=== PATIENT | male | born 1960 | race Caucasian/White ===

== ENCOUNTER 2016-07-25 20:35 | Emergency (ER) | payer BC, OTHER ==
[~2016-07-25] VITALS: Ht 165.1 cm; Wt 97.5 kg
[2016-07-25 20:35] VITALS: Ht 165.1 cm; Wt 97.5 kg
[~2016-07-25 20:35] MED LIST: ASPI325T PO; ATOR20TA59 PO; CEPH500C2 PO; CYCL30DR BOTH EYES; INSU100V9 SQ; INSU300I SQ; LIRA0.6P2 SQ; SULF1TAB42 PO
--- OUTSIDE RECORDS SUMMARY | 2016-07-25 20:39 | XMS REPORT | Referral Summary ---
Author Author [facility] Organization [facility] Address Unknown Phone Unavailable Care Team Providers Care Tennis Ball Coverer Hand Name Role Phone Rajinder Gamez Primary Care Physician [phone] Encounter [facility] [id number] Date(s): 01/17/16 - 01/17/16 [facility] [address] [place] [address]- Discharge Disposition: 01-Home or Self Care Attending Physician: Daryn Quiroz APRN Admitting Physician: Daryn Quiroz APRN Referring Physician: Rajinder Gamez DO Vital Signs Most recent to 1 oldest [Reference Range]: Temperature Tympanic 36.9 degC [36.6-38.1 degC] (01/17/16 8:04 AM) Peripheral Pulse 88 bpm Rate [60-100 bpm] (01/17/16 8:04 AM) Respiratory Rate 16 br/min [14-20 br/min] (01/17/16 8:04 AM) Blood Pressure 128/70 mmHg [90-140/60-90 mmHg] (01/17/16 8:04 AM) SpO2 98 % (01/17/16 8:04 AM) Problem List Condition Effective Dates Status Health Status Informant Acute hepatitis C Active (disorder)(Confirmed ) Adenomatous colon 2002 Resolved polyp(Confirmed)1 Allergies(Confirmed) Active Allergic rhinitis Active (disorder)(Confirmed ) Bronchitis(Confirmed Active ) COPD (chronic Active obstructive pulmonary disease)(Confirmed) Cardiac dysrhythmia, Active unspecified(Confirme d) Conductive hearing Active loss (disorder)(Confirmed ) DVT (deep venous Active thrombosis)(Confirme d) Depression(Confirmed Active ) Diabetes Active mellitus(Confirmed) Diabetic foot Active ulcer(Confirmed) Disorder of liver Active (disorder)(Confirmed ) Vision Active problems(Confirmed) Dry eyes(Confirmed) Active Heart Active murmur(Confirmed) Hypertension(Confirm Active ed) Irregular heart Active rhythm(Confirmed) Irritable bowel Active syndrome(Confirmed) Migraine with Active typical aura (disorder)(Confirmed ) PE (pulmonary 11/30/12 Active embolism)(Confirmed) 2 Sinus Active infection(Confirmed) Sleep apnea Active (disorder)(Confirmed ) Speech Active problem(Confirmed) TIA (transient Active ischemic attack)(Confirmed) 1C-scope in [facility], Dr. Mathis 2hospitalization Allergies, Adverse Reactions, Alerts Substance Reaction Severity Status penicillin Rash Active Medications Apidra SoloStar Pen 100 units/mL subcutaneous solution 10 units, SubCutaneous, BIDAC, 0 Refill(s) Start Date: 01/03/16 Status: Ordered aspirin 81 mg oral tablet 81 mg 1 tabs, Oral, Daily, 0 Refill(s) Start Date: 05/05/15 Status: Ordered atorvastatin 20 mg oral tablet See Instructions, TAKE ONE TABLET BY MOUTH DAILY, # 30 tabs, 1 Refill(s), eRx: [facility] #[id number], TAKE ONE TABLET BY MOUTH DAILY Start Date: 12/20/15 Status: Ordered Contour next EZ lancets Contour next EZ lancets, See Instructions, Contour next EZ Lancets or comparable to use to check BGM up to four times per day. Diag - 250.0, # 1 boxes, 11 Refill(s), Pharmacy: [facility] #[id number], Contour next EZ Lancets or comparable to use t... Start Date: 12/14/14 Status: Ordered Insulin pen needles 31G, 5mm Insulin pen needles 31G, 5mm, See Instructions, Use to administer insulin 4 times daily as instruted, # 100 Each, 11 Refill(s), Pharmacy: [facility] # [id number], Use to administer insulin 4 times daily as instruted Start Date: 04/27/15 Status: Ordered Miscellaneous DME DME Item Contour Next BGM test strips or compatable. Check BGM up to four times a day. Diag - 250.0, See Instructions, # 1 bottles, 12 Refill(s), Pharmacy: [facility] #[id number], Contour Next BGM test strips or compatable. Check BGM up to four t... Start Date: 12/19/14 Status: Ordered Miscellaneous DME DME Item Pen needles to inject insulin Diag - 250.0, See Instructions, # 1 boxes, 11 Refill(s), Pharmacy: [facility] #[id number], Pen needles to inject insulin; Diag - 250.0, Supply Start Date: 12/14/14 Status: Ordered Restasis 0.05% ophthalmic emulsion 1 drops, Eye-Both, q12hr, # 30 Each, 11 Refill(s), Pharmacy: [facility] # [id number] Start Date: 12/27/15 Stop Date: 12/21/16 Status: Ordered Toujeo SoloStar 300 units/mL subcutaneous solution See Instructions, INJECT 100 UNITS (0.33ML) UNDER THE SKIN DAILY, # 4.5 unknown unit, 5 Refill(s), eRx: [facility] #[id number], INJECT 100 UNITS (0.33ML) UNDER THE SKIN DAILY Start Date: 01/09/16 Status: Ordered Victoza 18 mg/3 mL subcutaneous solution See Instructions, DIAL AND INJECT SUBCUTANEOUSLY 1.8MG DAILY, # 9 unknown unit, 2 Refill(s), eRx: [facility] #[id number], DIAL AND INJECT SUBCUTANEOUSLY 1.8MG DAILY Start Date: 11/01/15 Status: Ordered Results No data available for this section Immunizations Vaccine Date Refusal Reason influenza virus vaccine, inactivated 12/27/15 influenza virus vaccine, live 01/07/13 influenza virus vaccine, live 12/27/11 pneumococcal 23-polyvalent vaccine 04/08/08 tetanus/diphtheria/pertussis, acel(Tdap) 03/15/11 tetanus/diphtheria/pertussis, acel(Tdap) 01/09/10 Procedures Procedure Date Related Diagnosis Body Site Colonoscopy and biopsy of colon1 04/11/14 Colonoscopic polypectomy2 2002 Carpal tunnel release Vasectomy Wrist Surgery, right x3 1Biopsy at 30 cm revealed submucosal leiomyoma, personal history of adenomatous polyps in the past. Repeat in 5 years 2"precancer polyp" done in [place], Dr. Mathis Social History Social History Type Response Smoking Status Former smoker; Type: Cigarettes; Total pack years: 1 Assessment and Plan No data available for this section
--- OUTSIDE RECORDS SUMMARY | 2016-07-25 20:40 | XMS REPORT | Referral Summary ---
Author Author [facility] Organization [facility] Address Unknown Phone Unavailable Care Team Providers Care Label Printer Name Role Phone Rajinder Gamez Primary Care Physician [phone] Encounter [facility] [id number] Date(s): 01/03/16 - 01/03/16 [facility] [address] [place] [address]- Discharge Diagnosis: Diabetic foot ulcer Discharge Diagnosis: Diabetes type 2, uncontrolled Discharge Disposition: 01-Home or Self Care Attending Physician: Rajinder Gamez DO Admitting Physician: Rajinder Gamez DO Vital Signs Most recent to 1 oldest [Reference Range]: Temperature Tympanic 35.6 degC [36.6-38.1 degC] *LOW* (01/03/16 3:25 PM) Peripheral Pulse 86 bpm Rate [60-100 bpm] (01/03/16 3:25 PM) Blood Pressure 139/96 mmHg [90-140/60-90 mmHg] (01/03/16 3:25 PM) Problem List Condition Effective Dates Status Health [...] TIA (transient Active ischemic attack)(Confirmed) 1C-scope in Dr. [place] 2hospitalization Allergies, Adverse Reactions, Alerts Substance Reaction [...] DAILY, # 30 tabs, 1 Refill(s), eRx: [facility] #[id number], TAKE ONE TABLET BY MOUTH DAILY Start Date: 12/20/15 Status: Ordered Contour next EZ lancets Contour next EZ lancets, See Instructions, Contour next EZ Lancets or comparable to use to check BGM up to four times per day. Diag - 250.0, # 1 boxes, 11 Refill(s), Pharmacy: [facility] #[id number], Contour next EZ Lancets or comparable to use t... Start Date: 12/14/14 Status: Ordered Insulin pen needles 31G, 5mm Insulin pen needles 31G, 5mm, See Instructions, Use to administer insulin 4 times daily as instruted, # 100 Each, 11 Refill(s), Pharmacy: [facility] # [id number], Use to administer insulin 4 times daily as instruted Start Date: 04/27/15 Status: Ordered Miscellaneous DME DME Item Contour Next BGM test strips or compatable. Check BGM up to four times a day. Diag - 250.0, See Instructions, # 1 bottles, 12 Refill(s), Pharmacy: [facility] #[id number], Contour Next BGM test strips or compatable. Check BGM up to four t... Start Date: 12/19/14 Status: Ordered Miscellaneous DME DME Item Pen needles to inject insulin Diag - 250.0, See Instructions, # 1 boxes, 11 Refill(s), Pharmacy: [facility] #[id number], Pen needles to inject insulin; Diag - 250.0, Supply Start Date: 12/14/14 Status: Ordered Restasis 0.05% ophthalmic emulsion 1 drops, Eye-Both, q12hr, # 30 Each, 11 Refill(s), Pharmacy: [facility] # [id number] Start Date: 12/27/15 Stop Date: 12/21/16 Status: Ordered Toujeo SoloStar 300 units/mL subcutaneous solution 100 units, SubCutaneous, Daily, # 4 mL, 6 Refill(s), Pharmacy: [facility] #[id number], 100 units SubCutaneous Daily Start Date: 08/09/15 Status: Ordered Victoza 18 mg/3 mL subcutaneous solution See Instructions, DIAL AND INJECT SUBCUTANEOUSLY 1.8MG DAILY, # 9 unknown unit, 2 Refill(s), eRx: [facility] #[id number], DIAL AND INJECT SUBCUTANEOUSLY 1.8MG DAILY Start Date: 11/01/15 Status: Ordered Results No data available for this section Immunizations Vaccine Date Refusal Reason influenza virus vaccine, inactivated 12/27/15 influenza virus vaccine, live 01/07/13 influenza virus vaccine, live 12/27/11 pneumococcal 23-polyvalent vaccine 04/08/08 tetanus/diphtheria/pertussis, acel(Tdap) 03/15/11 tetanus/diphtheria/pertussis, acel(Tdap) 01/09/10 Procedures Procedure Date Related Diagnosis Body Site Paring or cutting of benign hyperkeratotic 01/03/16 lesion (eg, corn or callus); single lesion Colonoscopy and biopsy of colon1 04/11/14 Colonoscopic polypectomy2 2002 Carpal tunnel release Vasectomy Wrist Surgery, right x3 1Biopsy at 30 cm revealed submucosal leiomyoma, personal history of adenomatous polyps in the past. Repeat in 5 years 2"precancer polyp" done in [place], [place], Dr. Mathis Social History Social History Type Response Smoking Status Former smoker; Type: Cigarettes; Total pack years: 1 Assessment and Plan Extracted from: Title: Office Visit Note Author: Rajinder Gamez DO Date: 01/03/16 Assessment/Plan 1.Diabetic foot ulcer 1. The callus over the diabetic foot ulcer was pared down today. 2. Continue offloading with a Cam Walker use. 3. May return to work next Friday with upper sections. Ordered: Office Visit Level 4 Est 93875 Paring/Cutting Hypkeratotic Lesion, Single 93966 2.Diabetes type 2, uncontrolled 1. Recent labs reviewed in detail with the patient, his A1c is 10.1 2. Continue with diabetic education and insulin adjustment with the clinical pharmacist 3. Follow-up in 3 months for diabetes management 4. Repeat fasting labs in 3 months time prior to next office visit Ordered: Comprehensive Metabolic Panel Hemoglobin A1c Lipid Panel Office Visit Level 4 Est 10275
--- OUTSIDE RECORDS SUMMARY | 2016-07-25 20:40 | XMS REPORT | Continuity of Care Document ---
Author Author [facility] Organization [facility] Address Unknown Phone Unavailable Support Name Relationship Address Phone NAHID WU FACS CWS Caregiver [address] [place] [address] [place] [phone] VIKASH BERRY DO Caregiver [address] [place] [address] [place] [phone] MAGDALENO TARIQ Next Of Kin [address] [place] [address] Insurance Providers Payer Name Policy Number Subscriber Name Relationship Rust [id number] [employer] Tariq 18 Self Advance Directives Directive Response Recorded Date/Time Ordered Resuscitation Status Full Code 04/06/14 1:25pm Resuscitation Documents on File No 04/06/14 10:58am Problems Medical Problems Problem Onset Date Status Chest pain Unknown Active Dizziness Unknown Active Hyperglycemia Unknown Active Medications Medication Dose Route Sig Days/Qty Instructions Order Date Discontinued Date Status Hydrocodone Bit/Acetaminophen 1 Udtab PO NEEDED 09/07/12 Discontinued Vardenafil Hcl 10 Mg PO NEEDED 09/07/12 02/22/13 Discontinued Pravastatin Sodium 20 Mg PO DAILY 09/07/12 02/22/13 Discontinued Lisinopril 20 Mg PO DAILY 09/07/12 02/22/13 Discontinued Insulin Glulisine 25 Unit SQ WITH MEALS & HS 09/07/12 Active Esomeprazole Mag Trihydrate 40 Mg PO DAILY 09/07/12 11/30/12 Discontinued Aspirin 81 Mg PO DAILY 09/07/12 02/22/13 Discontinued Ranitidine Hcl 150 Mg PO TWICE A DAY 1 Qty 11/26/12 02/22/13 Discontinued Insulin Glargine 100 U SQ TWICE A DAY 35 Qty 11/26/12 11/30/12 Discontinued Azithromycin 500 Mg PO DAILY 1 Qty 11/26/12 11/30/12 Discontinued Codeine/Promethazine Hcl 120 Ml PO DAILY 1 Qty 11/26/12 02/22/13 Discontinued Insulin Glargine 60 U SQ TWICE A DAY 35 Qty 11/30/12 Active Liraglutide 0.6 Mg SQ BEDTIME 04/06/14 Active [Antibiotic] PO THREE TIMES A DAY 04/11/14 Active Social History Social History Problem Response Recorded Date/Time Chewing Tobacco Status No 04/11/2014 7:25am Hx Substance Use No 04/11/2014 7:25am Hx Alcohol Use No 04/11/2014 7:25am Has the pt used tobacco in the last 12 months No 04/11/2014 7:25am Query Response Start Date Stop Date Smoking Status Never smoker Hospital Discharge Instructions No hospital discharge instructions. Plan of Care No plan of care. Functional Status No functional status results. Allergies, Adverse Reactions, Alerts Allergen Type Severity Reaction Status Last Updated Penicillin Allergy Unknown Active 02/22/13 Immunizations Name Given Type Hx Influenza Vaccination Y FALL 2013 Historical Hx Pneumococcal Vaccination Y FALL 2013 Historical Hx Influenza Vaccination Y FALL 2013 Historical Vital Signs Acute Vital Signs Vital Response Date/Time Temperature (Fahrenheit) 97.2 deg F (96.8 - 99.1) Temperature (Calculated Celsius) 36.51588 degrees C (36.0 - 37.3) Temperature Source Temporal Pulse Rate (adult) 77 bpm (60 - 100) Respiratory Rate 16 breaths/min (10 - 20) O2 Sat by Pulse Oximetry 98 % (90 - 100) Oxygen Delivery Method Room Air Blood Pressure 123/84 mm Hg Blood Pressure Source Automatic Cuff Height 5 ft 5 in Weight 206 lb Body Mass Index 34.0 kg/m^2 Results Test Source Date Result Interp. Ref. Range Comments Acetone Level February 22, 2013 12:30am Negative - Activated Partial Thromboplast Time November 30, 2012 4:22am 54.1 SEC H 24 -36 COMMENT OK TO USE THIS MORNINGS BLOOD IF ALREADY DRAWN Alanine Aminotransferase (ALT/SGPT) February 23, 2013 4:32am 24 U/L N 21 -72 Albumin February 23, 2013 4:32am 3.5 G/DL N 3.5-5.0 Albumin/Globulin Ratio February 23, 2013 4:32am 1.1 RATIO N 1.1-2.2 Alkaline Phosphatase February 23, 2013 4:32am 105 U/L N 38-126 Anion Gap June 11, 2013 12:00am 13 MEQ/L N 5-15 Aspartate Amino Transf (AST/SGOT) February 23, 2013 4:32am 32 U/L DN 17- 59 B-Type Natriuretic Peptide January 25, 2010 8:55am 25 PG/ML N 15-100 BUN/Creatinine Ratio June 11, 2013 12:00am 20 RATIO N 6-26 Band Neutrophils # November 29, 2012 4:34am 0.2 T/MM3 - Band Neutrophils % November 29, 2012 4:34am 1.0 % N 0-6 Basophils # (Auto) February 23, 2013 4:32am 0.0 T/MM3 N 0-0.2 Basophils (%) (Auto) February 23, 2013 4:32am 0.3 % N 0-2 Blood Urea Nitrogen June 11, 2013 12:00am 14.0 MG/DL N 9-20 C-Reactive Protein September 07, 2012 10:50am 7.4 MG/L N 0-9 Calcium Level June 11, 2013 12:00am 8.9 MG/DL N 8.4-10.2 Calculated Osmolality June 11, 2013 12:00am 282 MOSM/KG H 261-280 Carbon Dioxide Level June 11, 2013 12:00am 28 MEQ/L N 22-30 Chemistry Specimen Hemolysis June 11, 2013 12:00am < 15 0-25 0-25: No Hemolysis.26-70: Slight Hemolysis - can falsely elevate K and Urine Protein. 71-285: Moderate Hemolysis - can falsely elevate K, Troponin I, CA 19-9, PTH, CSF GLucose, and Urine Protein, and can falsely decrease Phenytoin. 286-999: Gross Hemolysis - can falsely elevate K, Troponin I, CA 19-9, PTH, CSF Glucose, and Urine Protine, and can falsely decrease Phenytoin. Recommend specimen recollection. Chloride Level June 11, 2013 12:00am 103 MEQ/L N 98-107 Cholesterol Level February 22, 2013 5:50am 162 MG/DL N 132-199 COMMENT bloo din labCOMMENT blood in lab Cholesterol/HDL Ratio February 22, 2013 5:50am 4.1 RATIO N 0-5.0 COMMENT bloo din labCOMMENT blood in lab Creatinine June 11, 2013 12:00am 0.7 MG/DL L 0.8-1.5 D-Dimer September 07, 2012 10:50am < 150 NG/ML 0-230 <224 NG/ML= PRESUMPTIVE NEGATIVE FOR PE OR DVT>224 NG/ML=ADDITIONAL EVALUATION FOR PE OR DVT RECOMMENDED Eosinophils # (Auto) February 23, 2013 4:32am 0.1 T/MM3 N 0-0.5 Eosinophils (%) (Auto) February 23, 2013 4:32am 0.8 % N 0-4 Erythrocyte Sedimentation Rate September 07, 2012 10:50am 21 MM/HR H 0-15 Globulin February 23, 2013 4:32am 3.3 G/DL N 2.4-3.6 Glomerular Filtration Rate Calc June 11, 2013 12:00am 119 - Glucometer April 11, 2014 9:57am 229 mg/dL H 75-110 Glucose Level June 11, 2013 12:00am 165 MG/DL H 75-110 HDL Cholesterol Direct February 22, 2013 5:50am 40 MG/DL N 40-60 COMMENT bloo din labCOMMENT blood in lab Hematocrit February 23, 2013 4:32am 38.8 % L 41-53 Hemoglobin February 23, 2013 4:32am 13.3 GM/DL L 13.5-17.5 Hemoglobin A1c November 26, 2012 6:06pm 10.0 % H 6-7 <6.0 NON-DIABETIC RANGE6.0-7.0 ADA THERAPEUTIC RANGE >7.0 ACTION SUGGESTED Icterus Index June 11, 2013 12:00am < 2 0-7 Immature Granulocyte # (Auto) February 23, 2013 4:32am 0.01 T/MM3 N 0.00 -0.03 Immature Granulocyte % (Auto) February 23, 2013 4:32am 0.1 % N 0.0-0.5 LDL Cholesterol, Calculated February 22, 2013 5:50am 102.6 N 66-159 COMMENT bloo din labCOMMENT blood in lab Lab Scanned Report June 11, 2013 3:03pm LAB TEST FORM REQUEST [id number] - Lymphocytes # (Auto) February 23, 2013 4:32am 0.8 T/MM3 L 1-4.8 Lymphocytes # (Manual) November 29, 2012 4:34am 0.6 T/MM3 L 1-4.8 Lymphocytes % (Manual) November 29, 2012 4:34am 3.0 % L 23-45 Lymphocytes (%) (Auto) February 23, 2013 4:32am 10.5 % L 23-45 Magnesium Level November 26, 2012 6:06pm 2.1 MG/DL N 1.6-2.3 Mean Corpuscular Hemoglobin February 23, 2013 4:32am 29.8 UUG N 26-34 Mean Corpuscular Hemoglobin Concent February 23, 2013 4:32am 34.3 GM/DL N 31-37 Mean Corpuscular Volume February 23, 2013 4:32am 86.8 UM3 N 80-100 Mean Platelet Volume February 23, 2013 4:32am 10.8 UM3 N 9.4-12.4 Monocytes # (Auto) February 23, 2013 4:32am 0.3 T/MM3 N 0-0.8 Monocytes (%) (Auto) February 23, 2013 4:32am 4.0 % N 0-9.0 Neutrophils # (Auto) February 23, 2013 4:32am 6.7 T/MM3 N 1.8-7.7 Neutrophils # (Manual) November 29, 2012 4:34am 19.8 T/MM3 H 1.8-7.7 Neutrophils % (Manual) November 29, 2012 4:34am 96.0 % H 33-66 Neutrophils (%) (Auto) February 23, 2013 4:32am 84.3 % H 33-66 Platelet Count February 23, 2013 4:32am 326 T/MM3 N 130-400 Potassium Level June 11, 2013 12:00am 3.7 MEQ/L N 3.6-5 Prealbumin February 22, 2013 5:50am 17.8 MG/DL N 17.6-36.0 Prothromb Time International Ratio February 23, 2013 4:32am 3.36 H 0.86- 1.10 THERAPUTIC RANGE=2.00-3.00 FOR ANTI-THROMBOSIS THERAPUTIC RANGE=2.50- 3.50 FOR IMPLANTED VALVE RDW Standard Deviation February 23, 2013 4:32am 39.7 FL N 36.9-50.2 Red Blood Count February 23, 2013 4:32am 4.47 M/MM3 L 4.50-5.90 Sodium Level June 11, 2013 12:00am 144 MEQ/L N 134-144 Tests Not Done December 15, 2008 5:20am Not done - [facility] Thyroid Stimulating Hormone (TSH) February 22, 2013 5:50am 2.67 MIU/L DN 0.47-4.68 COMMENT bloo din labCOMMENT blood in lab Total Bilirubin February 23, 2013 4:32am 0.50 MG/DL N 0.20-1.30 Total Protein February 23, 2013 4:32am 6.8 G/DL N 6.3-8.2 Triglycerides Level February 22, 2013 5:50am 97 MG/DL N 40-160 COMMENT bloo din labCOMMENT blood in lab Troponin I February 22, 2013 12:10pm < 0.012 ng/ml 0-0.12 Turbidity June 11, 2013 12:00am < 20 0-20 Urinalysis Comment February 22, 2013 12:39am Microscopic not ind. - Has specimen been collected/obtained? Y Urine Bilirubin February 22, 2013 12:39am Negative - Has specimen been collected/obtained? Y Urine Blood February 22, 2013 12:39am Negative - Has specimen been collected/obtained? Y Urine Collection Type February 22, 2013 12:39am Voided-not cc-midstr - Has specimen been collected/obtained? Y Urine Color February 22, 2013 12:39am Yellow - Has specimen been collected/obtained? Y Urine Glucose (UA) February 22, 2013 12:39am 3+ H - Has specimen been collected/obtained? Y Urine Ketones February 22, 2013 12:39am Negative - Has specimen been collected/obtained? Y Urine Leukocyte Esterase February 22, 2013 12:39am Negative - Has specimen been collected/obtained? Y Urine Microalbumin December 15, 2008 5:20am < 6.0 MG/L 0-17 CHILD AND FAMILY COUNSELOR Urine Nitrite February 22, 2013 12:39am Negative - Has specimen been collected/obtained? Y Urine Protein February 22, 2013 12:39am Negative - Has specimen been collected/obtained? Y Urine Random Creatinine December 15, 2008 5:20am 80.4 MG/DL - [facility] Urine Specific [place] February 22, 2013 12:39am 1.010 L - Has specimen been collected/obtained? Y Urine Turbidity February 22, 2013 12:39am Clear - Has specimen been collected/obtained? Y Urine Urobilinogen February 22, 2013 12:39am Normal EU/DL - Has specimen been collected/obtained? Y Urine pH February 22, 2013 12:39am 7.0 - Has specimen been collected/ obtained? Y VLDL Cholesterol February 22, 2013 5:50am 19.4 MG/DL N 0-28 COMMENT bloo din labCOMMENT blood in lab Vitamin B12 Level February 22, 2013 5:50am 526 PG/ML N 239-931 White Blood Count February 23, 2013 4:32am 8.0 T/MM3 N 4.5-11.0 Gram Stain Toe-Left First December 06, 2011 12:20pm Procedures Procedure Status Date Provider(s) Colonoscopy with polypectomy and biopsy completed 04/11/14 NAHID WU MD, FACS, CWS
--- OUTSIDE RECORDS SUMMARY | 2016-07-25 20:41 | XMS REPORT | Continuity of Care Document ---
Author Author [facility] Organization [facility] Address Unknown Phone Unavailable Allergies Active Description Code Type Severity Reaction Onset Reported/Identified Relationship to Patient Clinical Status Yes penicillin NKMA N/A Rash 08/05/2013 Medications Problems Date Dx Coded Attending Type Code Diagnosis Diagnosed By 05/06/2015 B95.1 Streptococcus, group B, as the cause of diseases classified elsewhere THUY PRINCE MD 05/06/2015 B95.61 Methicillin susceptible Staphylococcus aureus infection as the cause of diseases classified elsewhere THUY PRINCE MD 05/06/2015 E11.9 Type 2 diabetes mellitus without complications THUY PRINCE MD 05/06/2015 J44.9 Chronic obstructive pulmonary disease, unspecified THUY PRINCE MD 05/06/2015 M86.671 Other chronic osteomyelitis, right ankle and foot THUY PRINCE MD 05/06/2015 Z79.2 penitentiary (current) use of antibiotics THUY PIRNCE MD 05/06/2015 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 THUY PRINCE MD 05/06/2015 Z88.0 Allergy status to penicillin THUY PRINCE MD 05/10/2015 B95.1 Streptococcus, group B, as the cause of diseases classified elsewhere THUY PRINCE MD 05/10/2015 B95.61 Methicillin susceptible Staphylococcus aureus infection as the cause of diseases classified elsewhere THUY PRINCE MD 05/10/2015 E11.9 Type 2 diabetes mellitus without complications THUY PRINCE MD 05/10/2015 J44.9 Chronic obstructive pulmonary disease, unspecified THUY PRINCE MD 05/10/2015 M86.671 Other chronic osteomyelitis, right ankle and foot THUY PRINCE MD 05/10/2015 Z79.2 penitentiary (current) use of antibiotics THUY PRINCE MD 05/10/2015 Z79.4 penitentiary (current) use of insulin THUY PIRNCE MD 05/10/2015 Z88.0 Allergy status to THUY Enrique MD Procedures Code Description [place] [address] Subsequent hospital care, per day, for the evaluation and management of a patient, which requires at THUY PRINCE MD 11/24/2015 11451 Inpatient consultation for a new or established patient, which requires these 3 salomon components: A co THUY PRINCE MD 11/24/2015 Results Encounters ACCT No. Visit Date/Time Discharge Status Pt. Type Provider Facility Loc./Unit Complaint [id number] 06/11/2013 08:01:00 06/11/2013 23 :59:59 CLS Outpatient [id number] 05/24/2013 08:19:00 05/24/2013 23 :59:59 CLS Outpatient [id number] 05/10/2013 09:08:00 05/10/2013 23 :59:59 CLS Outpatient [id number] 04/26/2013 10:49:00 04/26/2013 23 :59:59 CLS Outpatient [id number] 03/08/2013 08:46:00 03/08/2013 23 :59:59 CLS Outpatient [id number] 03/01/2013 10:38:00 03/01/2013 23 :59:59 CLS Outpatient
--- OUTSIDE RECORDS SUMMARY | 2016-07-25 20:42 | XMS REPORT | Referral Summary ---
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 Discharge Diagnosis: Diabetes type 2, uncontrolled Discharge Disposition: 01-Home or Self Care Attending Physician: Rajinder Gamez DO Admitting Physician: Rajinder Gamez DO Vital Signs Most recent to 1 oldest [Reference Range]: Temperature Tympanic 35.2 degC [36.6-38.1 degC] *LOW* (12/27/15 9:25 AM) Peripheral Pulse 86 bpm Rate [60-100 bpm] (12/27/15 9:25 AM) Blood Pressure 128/80 mmHg [90-140/60-90 mmHg] (12/27/15 9:25 AM) Problem List Condition Effective Dates Status [...] Active typical aura (disorder)(Confirmed ) PE (pulmonary 8/26/13 Active embolism)(Confirmed) 2 Sinus Active infection(Confirmed) Sleep apnea Active (disorder)(Confirmed ) Speech Active problem(Confirmed) TIA (transient Active ischemic attack)(Confirmed) 1C-scope in [facility], Dr. Mathis 2hospitalization Allergies, Adverse Reactions, Alerts Substance Reaction Severity Status penicillin Rash Active Medications Apidra SoloStar Pen 100 units/mL subcutaneous solution 8 units, SubCutaneous, With BKFT and Dinner, # 3 mL, 0 Refill(s), other reason ( Rx) Start Date: 07/05/15 Status: Ordered aspirin 81 mg oral tablet 81 mg 1 tabs, Oral, Daily, 0 Refill(s) Start Date: 05/05/15 Status: Ordered atorvastatin 20 mg oral tablet See Instructions, TAKE ONE TABLET BY MOUTH DAILY, # 30 tabs, 1 Refill(s), eRx: [facility] #[id number], TAKE ONE TABLET BY MOUTH DAILY Start Date: 12/20/15 Status: Ordered Contour next EZ lancets Contour next EZ lancets, See Instructions, Contour next EZ Lancets or comparable to use to check BGM up to four times per day. Diag - 250.0, # 1 boxes, 11 Refill(s), Pharmacy: [facility] #[id number], Contour next EZ Lancets or comparable to use t... Start Date: 12/14/14 Status: Ordered Insulin pen needles 31G, 5mm Insulin pen needles 31G, 5mm, See Instructions, Use to administer insulin 4 times daily as instruted, # 100 Each, 11 Refill(s), Pharmacy: [facility] # [id number], Use to administer insulin 4 times daily as instruted Start Date: 04/27/15 Status: Ordered Miscellaneous DME DME Item Contour Next BGM test strips or compatable. Check BGM up to four times a day. Diag - 250.0, See Instructions, # 1 bottles, 12 Refill(s), Pharmacy: [facility] #[id number], Contour Next BGM test strips or compatable. Check BGM up to four t... Start Date: 12/19/14 Status: Ordered Miscellaneous DME DME Item Pen needles to inject insulin Diag - 250.0, See Instructions, # 1 boxes, 11 Refill(s), Pharmacy: [facility] #[id number], Pen needles to inject insulin; Diag - 250.0, Supply Start Date: 12/14/14 Status: Ordered Restasis 0.05% ophthalmic emulsion 1 drops, Eye-Both, q12hr, # 30 Each, 11 Refill(s), Pharmacy: [facility] # [id number] Start Date: 12/27/15 Stop Date: 12/21/16 Status: Ordered Toujeo SoloStar 300 units/mL subcutaneous solution 100 units, SubCutaneous, Daily, # 4 mL, 6 Refill(s), Pharmacy: [facility] #[id number], 100 units SubCutaneous Daily Start Date: 08/09/15 Status: Ordered Victoza 18 mg/3 mL subcutaneous solution See Instructions, DIAL AND INJECT SUBCUTANEOUSLY 1.8MG DAILY, # 9 unknown unit, 2 Refill(s), eRx: [facility] #[id number], DIAL AND INJECT SUBCUTANEOUSLY 1.8MG DAILY Start Date: 11/01/15 Status: Ordered Results Hematology Most recent to 1 oldest [Reference Range]: WBC [4.8-10.8 6.5 10*3/uL 10*3/uL] (12/27/15 10:37 AM) RBC [4.60-6.20] 4.57 *LOW* (12/27/15 10:37 AM) Hgb [14.0-18.0 13.4 gm/dL gm/dL] *LOW* (12/27/15 10:37 AM) Hct [42.0-52.0 %] 38.8 % *LOW* (12/27/15 10:37 AM) MCV [82.0-99.0 fL] 84.9 fL (12/27/15 10:37 AM) MCH [27.0-32.0 pg] 29.3 pg (12/27/15 10:37 AM) MCHC [32.0-36.0 34.5 gm/dL gm/dL] (12/27/15 10:37 AM) RDW [11.5-14.5 %] 13.8 % (12/27/15 10:37 AM) Platelet [150-400 307 10*3/uL 10*3/uL] (12/27/15 10:37 AM) MPV [8.8-14.8 fL] 11.0 fL (12/27/15 10:37 AM) Immature 0.2 % Granulocytes (12/27/15 10:37 AM) [0.0-1.0 %] Neutrophils [51-75 66 % %] (12/27/15 10:37 AM) Lymphocytes [20-46 23 % %] (12/27/15 10:37 AM) Monocytes [4-11 %] 9 % (12/27/15 10:37 AM) Eosinophils [0-4 %] 2 % (12/27/15:37 AM) Basophils [0-2 %] 0 % (12/27/15 10:37 AM) Neutro Absolute 4.26 10*3 [1.90-7.00 10*3] (12/27/15 10:37 AM) Lymph Absolute 1.51 10*3 [0.80-3.30 10*3] (12/27/15 10:37 AM) Tyler Absolute 0.57 10*3 [0.30-1.00 10*3] (12/27/15 10:37 AM) Eos Absolute 0.10 10*3 [0.00-0.50 10*3] (12/27/15 10:37 AM) Baso Absolute 0.02 10*3 [0.00-0.20 10*3] (12/27/15 10:37 AM) Chemistry Most recent to 1 oldest [Reference Range]: Sodium Lvl [135-144 142 mEq/L mEq/L] (12/27/15:37 AM) Potassium Lvl 4.4 mEq/L [3.5-5.2 mEq/L] (12/27/15:37 AM) Chloride [99-111 107 mEq/L mEq/L] (12/27/15 10:37 AM) CO2 [23-31 mEq/L] 26 mEq/L (12/27/15 10:37 AM) AGAP [3-20] 9 (12/27/15 10:37 AM) BUN [8-26 mg/dL] 13 mg/dL (12/27/15 10:37 AM) Glucose Lvl [70-99 124 mg/dL mg/dL] *HI* (12/27/15 10:37 AM) Creatinine Lvl 0.77 mg/dL [0.72-1.25 mg/dL] (12/27/15 10:37 AM) eGFR [>60 mL/min] >60 mL/min 1 (12/27/15 10:37 AM) Calcium Lvl 9.2 mg/dL [8.9-10.5 mg/dL] (12/27/15 10:37 AM) Albumin Lvl [3.5-5.0 4.1 gm/dL gm/dL] (12/27/15 10:37 AM) Total Protein 6.9 gm/dL [6.1-7.7 gm/dL] (12/27/15 10:37 AM) Globulin [1.8-4.0 2.8 gm/dL gm/dL] (12/27/15 10:37 AM) ALT [0-55 U/L] 19 U/L (12/27/15 10:37 AM) AST [5-34 U/L] 17 U/L (12/27/15 10:37 AM) Alk Phos [40-150 126 U/L U/L] (12/27/15 10:37 AM) Bili Total [0.2-1.2 0.5 mg/dL mg/dL] (12/27/15 10:37 AM) Hgb A1c [4.1-5.6 %] 10.3 % *HI* (12/27/15 10:37 AM) eAvg Glucose 248.9 mg/dL (12/27/15 10:37 AM) 1Result Comment: Multiply eGFR results by 1.21 for race. Immunizations Vaccine Date Refusal Reason influenza virus vaccine, inactivated 12/27/15 influenza virus vaccine, live 01/07/13 influenza virus vaccine, live 12/27/11 pneumococcal 23-polyvalent vaccine 04/08/08 tetanus/diphtheria/pertussis, acel(Tdap) 03/15/11 tetanus/diphtheria/pertussis, acel(Tdap) 01/09/10 Procedures Procedure Date Related Diagnosis Body Site Collection of venous blood by venipuncture 12/27/15 Colonoscopy and biopsy of colon1 04/11/14 Colonoscopic polypectomy2 2002 Carpal tunnel release Vasectomy Wrist Surgery, right x3 1Biopsy at 30 cm revealed submucosal leiomyoma, personal history of adenomatous polyps in the past. Repeat in 5 years 2"precancer polyp" done in [place], [place], Dr. Mathis Social History Social History Type Response Smoking Status Former smoker; Type: Cigarettes; Total pack years: 1 Assessment and Plan Extracted from: Title: Office Visit Note Author: Rajinder Gamez DO Date: 12/27/15 Assessment/Plan Diabetes type 2, uncontrolled 1. Review of his home blood sugars is for improvement in his readings but they continue to be high. 2. A1c ordered today, report is pending 3. Recommended that he follow-up with the clinical pharmacist for adjustment of his insulins 4. 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 Debridement and updated diabetic foot ulcer done today 2. Recommended that he start using the Cam Walker to allow offloading of the toe 3. Follow-up in one week for wound care. We will see him on a weekly basis until this heals. 4. Note provided to excuse him from work until the diabetic foot ulcer has healed Ordered: CBC w/ Differential Comprehensive Metabolic Panel Hemoglobin A1c Office Visit Level 4 Est 19260 Need for influenza vaccination Flu vaccination given today
--- OUTSIDE RECORDS SUMMARY | 2016-07-25 20:42 | XMS REPORT | Continuity of Care Document ---
Author Author [facility] Organization [facility] Address Unknown Phone Unavailable Support Name Relationship Address Phone ELISA SALDANA APRN Caregiver [address] [place] [address] Unavailable VIJAYBoris VIKASH DO Caregiver [address] [place] [address] [place] [address] Unavailable MAGDALENO TARIQ Next Of Kin [address] [place] [address] Insurance Providers Guarantor Mingo Tariq Jr Address [address] [place] [address] Email DENIED/NO EMAIL Payer [facility] Policy Number [id number] Subscriber's Name Mingo Tariq Jr Relationship 18 Self Group Number [id number] Effective Date 12 Chief Complaint and Reason for Visit Chief Complaint Cough,Fever,Flu,URI Reason for Visit [id number] Problems Active Problems Medical Problem Onset Date Status Acute osteomyelitis of toe of right foot Unknown Acute Anemia Unknown Chronic Asthma Unknown Chronic COPD (chronic obstructive pulmonary disease) Unknown Chronic Cardiac murmur Unknown Chronic Cellulitis Unknown Acute Chest pain Unknown Acute Constipation Unknown Resolved Diabetes type 2, uncontrolled Unknown Chronic Dizziness Unknown Acute History of pulmonary embolus (PE) Unknown Resolved Hyperglycemia Unknown Acute Hypertension Unknown Chronic Hypoglycemia due to insulin Unknown Acute Leukocytosis Unknown Resolved Sepsis Unknown Resolved Toe osteomyelitis, right Unknown Acute Past Problems Medical Problem Onset Date Diabetic foot ulcer Unknown Viral illness Unknown Medications Current Home Medications Medication Dose Units Route Directions Days Qty Instructions Start Date Aspirin 325 Mg Tablet 650 Mg Oral Daily 08/04/15 Atorvastatin Calcium 20 Mg Tablet 20 Mg Oral Daily 04/28/15 Cephalexin 500 Mg Capsule 500 Mg Oral Four Times Daily 14 Days [address] Arthur Mathews Certified Physician'S Assistant [facility] [address] [phone] 12/26/15 Cyclosporine (Restasis) 1 Each Droperette 1 Drop Both Eyes Every 12 Hours as needed for Prn Orders 08/04/15 Insulin Glargine,Hum.rec.anlog (Toujeo Solostar) 300 Unit/1 Ml Insuln.pen 100 Unit Sub-Q Daily 08/04/15 Insulin Glulisine (Apidra) 100 Unit/Ml Inj 8 Unit Sub-Q Three Times Daily With Meals 08/04/15 Liraglutide (Victoza 3-Clint) 0.6 Mg/0.1 Ml Pen.injctr 1.8 Mg Sub-Q Daily 04/28/15 Sulfamethoxazole/Trimethoprim (Bactrim Ds Tablet) 1 Each Tablet 1 Tab Oral Twice A Day 14 Days 28 Tablet Take 1 tablet, by mouth, 2 times a day. Supervising physician Dr. Arthur Mathews Certified Physician'S Assistant [facility] [address] [phone] 12/26/15 Sulfamethoxazole/Trimethoprim (Bactrim Ds Tablet) 1 Each Tablet 1 Tab Oral Twice A Day 14 Days 28 Tablet Take 1 tablet, by mouth, 2 times a day. Supervising physician Dr. Arthur Mathews Certified Physician'S Assistant [facility] [address] [phone] 12/26/15 Past Home Medications Medication Directions Ordered Status Aspirin (Aspir 81) 81 Mg Tablet.dr, 81 Mg Oral Daily 09/07/12 Discontinued Azithromycin 500 Mg Tablet, 500 Mg Oral Daily 11/26/12 Discontinued Codeine/Promethazine Hcl (Promethazine-Codeine Syrup) 120 Ml Syrup, 120 Ml Oral Daily 11/26/12 Discontinued Esomeprazole Mag Trihydrate (Nexium) 40 Mg Capsule.dr, 40 Mg Oral Daily 09/07 Discontinued Hydrocodone Bit/Acetaminophen (Lortab 7.5) 1 Udtab Tablet, 1 Udtab Oral As Needed 09/07/12 Discontinued Insulin Glargine (Lantus) 100 U/Ml Cartridge, 100 U Sub-Q Twice A Day Discontinued Insulin Glargine,Hum.rec.anlog (Toujeo Solostar) 300 Unit/1 Ml Insuln.pen, 160 Unit Sub-Q Daily 04/28/15 Discontinued Insulin Lispro (Humalog Kwikpen) 200 Unit/1 Ml Insuln.pen, 30 Sub-Q Before Meals 04/28/15 Discontinued Lisinopril 20 Mg Tablet, 20 Mg Oral Daily 09/07/12 Discontinued Pravastatin Sodium 20 Mg Tablet, 20 Mg Oral Daily 09/07/12 Discontinued Ranitidine Hcl (Zantac) 150 Mg Tablet, 150 Mg Oral Twice A Day 11/26/12 Discontinued Sulfamethoxazole/Trimethoprim (Bactrim Ds Tablet) 1 Each Tablet, 1 Tab Oral Twice A Day 04/28/15 Discontinued Vardenafil Hcl (Levitra) 10 Mg Tablet, 10 Mg Oral As Needed 09/07/12 Discontinued Social History Social History Problem Response Recorded Date/Time Onset Date Status Hx Substance Use No 08/04/2015 3:58pm Not Applicable Not Applicable Hx Alcohol Use No 08/04/2015 3:58pm Not Applicable Not Applicable Has the pt used tobacco in the last 12 months No 04/28/2015 10:33am Not Applicable Not Applicable Tobacco Usage none 08/04/2015 4:14pm Not Applicable Not Applicable Hospital Discharge Instructions No hospital discharge instructions. Plan of Care Discharge Date 01/15/16 4:52pm Disposition 01 DISCHARGED HOME, SELF-CARE Condition at Discharge Stable Instructions/Education Provided DI for Viral Syndrome Prescriptions See Medication Section Referrals VIKASH BERRY DO Address: [address] [place] [address] [place] [phone] Functional Status No functional status results. Allergies, Adverse Reactions, Alerts Allergen Type Severity Reaction Status Last Updated Penicillin Allergy Unknown Active 01/15/16 Immunizations Query Response on File Recorded Date/Time Hx Influenza Vaccination Y fall 201404/28/15 10:33am Hx Pneumococcal Vaccination Y fall 201304/28/15 10:33am Hx Influenza Vaccination Y fall 201404/28/15 10:33am Influenza Vaccine Hx 201401/15/16 4:41pm Tdap Vaccine Hx UNKNOWN 08/04/15 3:58pm Vital Signs Acute Vital Signs Vital Response Date/Time Temperature (Fahrenheit) 97.9 deg F (96.8 - 99.1) 01/15/2016 4:38pm Temperature (Calculated Celsius) 36.92909 degrees C (36.0 - 37.3) 01/15/2016 4:38pm Pulse Rate (adult) 105 bpm (60 - 100) 01/15/2016 4:38pm Respiratory Rate 28 breaths/min (10 - 20) 01/15/2016 4:38pm O2 Sat by Pulse Oximetry 98 % (90 - 100) 01/15/2016 4:38pm Blood Pressure 133/91 mm Hg 01/15/2016 4:38pm Height (Inches) 64.50 inches 01/15/2016 4:38pm Weight (Kilograms) 98.100 kg 01/15/2016 4:38pm Body Mass Index (BMI) 36.0 01/15/2016 4:38pm Results No known relevant diagnostic tests, laboratory data and/or discharge summary. Procedures No known history of procedures. Encounters Encounter Location Arrival/Admit Date Discharge/Depart Date Attending Provider Departed Emergency Room [facility] 01/15/16 4:34pm 01/15/16 4: 52pm ELISA SALDANA APRN Departed Emergency Room [facility] 12/26/15 10:41am 12/26/15 11: 15am ELISA SALDANA APRN Recent Diagnosis
--- OUTSIDE RECORDS SUMMARY | 2016-07-25 20:52 | XMS REPORT | Continuity of Care Document ---
Author Author [facility] Organization [facility] Address Unknown Phone Unavailable Support Name Relationship Address Phone NAHID WU FACS CWS Caregiver [address] [place] [address] [place] [phone] VIKASH BERRY DO Caregiver [address] [place] [address] [place] [phone] MAGDALENO TARIQ Next Of Kin [address] [place] [address] Insurance Providers Payer Name Policy Number Subscriber Name Relationship [facility] [id number] Mingo Tariq 18 Self Advance Directives Directive [...] F (96.8 - 99.1) Temperature (Calculated Celsius) 36.39304 degrees C (36.0 - 37.3) Temperature Source [...] 11, 2013 3:03pm LAB TEST FORM REQUEST [id number] - Lymphocytes # (Auto) February 23, 2013 [...] December 15, 2008 5:20am Not done - [facility] Thyroid Stimulating Hormone (TSH) February 22, [...] 15, 2008 5:20am < 6.0 MG/L 0-17 [facility] [employer] Urine Nitrite February 22, 2013 12:39am Negative - Has specimen been collected/obtained? Y Urine Protein February 22, 2013 12:39am Negative - Has specimen been collected/obtained? Y Urine Random Creatinine December 15, 2008 5:20am 80.4 MG/DL - [facility] Urine Specific Roland February 22, 2013 12:39am 1.010 L - [...]
--- OUTSIDE RECORDS SUMMARY | 2016-07-25 20:53 | XMS REPORT | Continuity of Care Document ---
Author Author [facility] Organization [facility] Address Unknown Phone Unavailable Allergies Active Description [...] and foot THUY PRINCE MD 05/06/2015 Z79.2 [facility] (current) use of antibiotics THUY PRINCE MD 05/06/2015 Z79.4 long term care administrator (current) use of insulin THUY PRINCE MD [...] and foot THUY PRINCE MD 05/10/2015 Z79.2 [facility] (current) use of antibiotics THUY PRINCE MD 05/10/2015 Z79.4 [facility] (current) use of insulin THUY PRINCE MD 05/10/2015 Z88.0 Allergy status to THUY Enrique MD Procedures Code [place] [address] Subsequent hospital care, per day, for the evaluation and management of a patient, which requires at THUY PRINCE MD 11/24/2015 91499 Inpatient consultation for a new or established patient, which requires these 3 salomon components: A co THUY PRINCE MD 11/24/2015 Results Encounters ACCT No. Visit Date/Time Discharge Status Pt. Type Provider Facility Loc./Unit Complaint [id number] 06/11/2013 08:01:00 06/11/2013 23 :59:59 CLS Outpatient [id number] 05/24/2013 08:19:00 05/24/2013 23 :59:59 CLS Outpatient [id number] 05/10/2013 09:08:00 05/10/2013 23 :59:59 CLS Outpatient [id number] 04/26/2013 10:49:00 04/26/2013 23 :59:59 CLS Outpatient [id number] 03/08/2013 08:46:00 03/08/2013 23 :59:59 CLS Outpatient [id number] 03/01/2013 10:38:00 03/01/2013 23 :59:59 CLS Outpatient
--- NOTE | 2016-07-25 20:56 | NUR ---
PROVIDER DR PARIKH IN TO SEE PATIENT.
[2016-07-25] MEDS ORDERED: NEOMYCIN/POLYM/BACITR OINT PACKET TOP ONE (21:00)
--- NOTE | 2016-07-25 21:02 | ERPDOC ---
Departure Disposition Decision Date: Jul 25, 2016 Disposition Decision Time: 22:35 Disposition: 01 DISCHARGED HOME, SELF-CARE Impression Impression Impression: Primary Impression: Injury, crush, foot Encounter type: initial encounter Laterality: left Qualified Codes: S97.82XA - Crushing injury of left foot, initial encounter Additional Impressions: Fracture of fifth toe, left, closed Encounter type: initial encounter Qualified Codes: S92.502A - Displaced unspecified fracture of left lesser toe(s), initial encounter for closed fracture Abrasion Contusion of left heel Encounter type: initial encounter Qualified Codes: S90.32XA - Contusion of left foot, initial encounter Severity: Severe Condition: Improved Seen By: Physician only Referrals: VIKASH BERRY DO (Family) HANK AYALA MD Patient Instructions: Crush Injury (ED), Toe Fracture (ED) Problems/Meds/Labs Reviewed?: Yes Medications reviewed and manag: Yes Additional Instructions: Wash wounds daily with mild soap and water, cover with a light coat of Vaseline and dry gauze dressing daily until healed Wear post op shoe at all times for any walking, and as needed for comfort/ splinting [place] 5 mg one to 2 tablets every 6 hours as needed for pain Keep foot elevated with cool pack in place for the next 2 days Follow-up Friday with your primary doctor, cardiology clinical nurse specialist, or worker's comp doctor Follow up care ordered?: Yes Mental Status: Alert Scripts Hydrocodone/Acetaminophen ([place] 5-325 Tablet) 5-325 Tablet 1-2 TAB PO QID Y for PAIN, #60 Prov: ARGELIA PARIKH MD 07/25/16 HPI General Chief Complaint: Lower Extremity Injury Stated Complaint: LFT FOOT INJ Time Seen by Provider: 20:43 Source: patient Exam Limitations: no limitations HPI Foot/Ankle Initial Comments 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 Pain and deep abrasion to posterior ankle with pain and bruising all over foot. 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 Past Medical History Metabolic: diabetes, hypertension Cardiac: other Respiratory: COPD, pulmonary embolus Male: other Neurological: TIA Surgical History Joint: carpal tunnel, foot, hand Family History Family PMH: FOUND: [place], hypertension Vaccines Hx Influenza Vaccination: Yes (FALL 2014) Hx Pneumococcal Vaccination: Yes (FALL 2013) Social History Does patient use chewing tobac: No Substance Use Type: does not use Alcohol Intake: occasionally, Does not drink Record Review Pertinent history updated: Yes Review of Systems Constitutional Constitutional: DENIES: appetite decrease, appetite increase, chills, dizziness , fever, weakness ENMT Ears: DENIES: pain Hearing: DENIES: hearing loss, tinnitus Balance: DENIES: vertigo Mouth/Throat: DENIES: change in swallowing, change in voice, hoarsness, painful swallowing, sore throat Cardiovascular Cardiac: DENIES: chest pain, dyspnea on exertion Rhythm/Rate: DENIES: irregular beat, palpitations, tachycardia Vascular: DENIES: pedal edema Pulmonary Respiratory: DENIES: cough, dyspnea, pleuritic chest pain GI Upper Abdomen: DENIES: dysphagia, heartburn/indigestion, nausea, pain, vomiting Lower Abdomen: DENIES: blood in stool, constipation, diarrhea, pain General: DENIES: burning, dysuria, frequency, pain, urgency Musculoskeletal General: joint pain, joint swelling, pain, tenderness, DENIES: atrophy of muscles, cramps, weakness Integumentary Skin: DENIES: rash, sores Neurological General: DENIES: headache, numbness, tingling, vertigo, weakness Exam General General Nourishment: well nourished, well developed, appears stated age, no acute distress Vital Signs: Temperature: 98.4, Source: Oral, Heart Rate: 91, Respiratory Rate : 20, BP: 157/91, Pulse Oximetry: 93 Height (Feet): 5 Height (Inches): 5.00 Fastrak Foot/Ankle Comments Patient has generalized swelling and pain throughout the ankle and foot. Large deep abrasion to the posterior aspect of the ankle with swelling and ecchymosis. Moderate diffuse areas of ecchymosis throughout the foot, and the fifth toe nail is partially avulsed. The base of the nail appears firmly intact , and does not appear terminally disattached. Neurologic RN Documented GCS Eye Opening: Verbal: Motor: Total: Progress Results/Orders Orders Procedure Category Date Status Time Dressing (Ed) EDM 07/25/16 Transmitted 20:56 Neomycin/Polymyxin/Bacitracin PHA 07/25/16 Complete (Neosporin 21:00 Irrigate/Clean Wound EDM 07/25/16 Transmitted 20:56 Hydrocodone/Acetaminophen PHA 07/25/16 Complete ([place] 7.5/325 21:00 Foot Left 3 Views RAD 07/25/16 Logged Ankle Left 3 View RAD 07/25/16 Taken Tetanus,Diphth,A PHA 07/25/16 Complete Pertus (Tdap) (Adacel) 22:00 Medications Current ED Medications Neomycin/ Polymyxin/ Bacitracin (Neosporin) 1 applic O ONCE TOP Last administered on 07/25/16 21:05; Start 07/25/16 at 21:00; Stop 07/25/16 at 21:01 ; Status DC Acetaminophen/ Hydrocodone Bitart ([place] 7.5/325) 1 tab O ONCE PO Last administered on 07/25/16 21:04; Start 07/25/16 at 21:00; Stop 07/25/16 at 21:01 ; Status DC Diphtheria/ Tetanus/Acell Pertussis (Adacel) 0.5 ml O ONCE IM Last administered on 07/25/16 22:02; Start 07/25/16 at 22:00; Stop 07/25/16 at 22:01 ; Status DC Progress Progress Patient given [place] 7.5 orally for pain X-rays of the foot and ankle - ankle appears normal, however on the ankle films there appears to be a subtle nondisplaced intra-articular calcaneus fracture. Questionable film VRad over read - normal calcaneus, with a small nondisplaced fracture of the base of the fifth phalanx of the foot. Wounds cleaned and dressed by nursing staff Patient placed in Post-op shoe, he is able to bear weight, but has quite a bit of pain in the posterior aspect of the ankle/calf/Achilles tendon. Patient given [place] prescription and a pack, instructed to follow-up with Dr. Berry or Dr. Ayala, or a Worker's Compensation doctor of his choice. ARGELIA PARIKH MD Jul 25, 2016 21:01
--- NOTE | 2016-07-25 21:16 | NUR ---
XRAY PORTABLE BEING DONE IN ROOM AT THIS TIME.
[2016-07-25] MEDS ORDERED: TETANUS,DIPHTH,a PERTUS (Tdap) 0.5 ML VIAL IM ONE (22:00)
[2016-07-25] MEDS ORDERED: HYDR-4246 PO (22:39)
[2016-07-25 22:45] VITALS: BP 157/91; PULSE 77; RESP 20; TEMP 98.4; O2SAT 98
[2016-07-25] MEDS ORDERED: HYDROCODONE/APAP 5/325 (PrePack) SENT HOME ONE (22:45)
--- NOTE | 2016-07-26 08:10 | DI ---
Indication: ITS.REASON: ankle crush injury PROCEDURE: ANKLE LEFT 3 VIEW: Encounter: Initial Comparison: None Findings: There is no acute fracture, dislocation or malalignment identified. Inferior calcaneal spur. Impression: No acute osseous abnormality. There is a preliminary report by [facility]. .
--- NOTE | 2016-07-26 08:47 | DI ---
Indication: ITS.REASON: foot crush injury PROCEDURE: FOOT LEFT 3 VIEWS: Encounter: Initial Comparison: None Findings: Nondisplaced fracture of the fifth toe proximal phalanx. No additional acute fracture or dislocation seen. Calcaneal spurring. Impression: Closed posttraumatic fifth toe proximal phalangeal fracture. There is a preliminary report by [facility]. .
== END 2016-07-25 22:45 | disposition home or self-care (01) ==
LOC: ED 20:35
DX: S97.82XA Crushing injury of left foot, initial encounter (principal); S92.515A Nondisplaced fracture of proximal phalanx of left lesser toe(s), initial encounter for closed fracture; S90.32XA Contusion of left foot, initial encounter; S90.512A Abrasion, left ankle, initial encounter; W24.0XXA Contact with lifting devices, not elsewhere classified, initial encounter; Y93.9 Activity, unspecified; Y92.63 Factory as the place of occurrence of the external cause; Y99.0 Civilian activity done for income or pay
CPT/HCPCS: 90471; 90715; 96372